=== PATIENT | male | born 1975 | race African-American/Black ===

== ENCOUNTER 2018-01-03 20:41 | Emergency (ER) | payer SELFPAY ==
[2018-01-03 21:25] LABS: Bilirubin Negative (Negative); Blood, Urine Negative (Negative); Clarity CLOUDY (Clear); Glucose, Urine (Dipstick) Negative (Negative); Leukocyte Small (Negative); Nitrite Negative (Negative); Protein, Urine (Dipstick) Negative (Neg-Trace); Specific Gravity, Urine 1.022 (1.002-1.036); pH, Urine 7.5 (5.0-9.0)
[2018-01-03 21:27] LABS: Bacteria/HPF None Seen HPF (None Seen); Hyaline Casts/LPF 0-3 HYALINE CAST LPF (0-3 Hyaline); Squamous Epithelial 0-3 HPF (0-3); WBC/HPF 21-50 HPF (0-3)
[2018-01-03] MEDS ORDERED: Lidocaine 1% PF 5 ML VIAL ONE (21:48)
[2018-01-03] MEDS ORDERED: cefTRIAXone\\ROCEPHIN 250 MG VIAL ONE (21:48)
[2018-01-03] MEDS ORDERED: Azithromycin 250 MG TAB ONE (21:49)
[2018-01-04 22:45] LABS: Chlamydia by PCR DETECTED (NotDetected); GC by PCR Not Detected (NotDetected)
== END 2018-01-03 22:05 | disposition home or self-care (01) ==
LOC: ERS 20:41
DX: N39.0 Urinary tract infection, site not specified (principal); I10 Essential (primary) hypertension; F17.210 Nicotine dependence, cigarettes, uncomplicated; E78.5 Hyperlipidemia, unspecified
CPT/HCPCS: 81003; 81015; 87491; 87591; 96372; J0696; J2001

== ENCOUNTER 2018-02-03 19:56 | Emergency (ER) | payer SELFPAY | END 2018-02-03 20:44 | disposition home or self-care (01) | LOC: ERS 19:56 | DX: J01.90 Acute sinusitis, unspecified (principal); B96.89 Other specified bacterial agents as the cause of diseases classified elsewhere; I10 Essential (primary) hypertension; E11.9 Type 2 diabetes mellitus without complications; E78.5 Hyperlipidemia, unspecified; F17.210 Nicotine dependence, cigarettes, uncomplicated | CPT/HCPCS: 99283 ==

== ENCOUNTER 2018-02-12 22:27 | Emergency (ER) | payer SELFPAY | END 2018-02-12 23:53 | disposition home or self-care (01) | LOC: ERS 22:27 | DX: K02.9 Dental caries, unspecified (principal); E11.9 Type 2 diabetes mellitus without complications; E78.5 Hyperlipidemia, unspecified; I10 Essential (primary) hypertension; F17.210 Nicotine dependence, cigarettes, uncomplicated; Z71.6 Tobacco abuse counseling | CPT/HCPCS: 99406 ==

== ENCOUNTER 2018-07-22 19:02 | Observation (INO) | payer SELFPAY ==
[2018-07-22] MEDS ORDERED: methylPREDNISolone Sod Succ/PF 125 MG/2 ML VIAL ONE (19:22)
[2018-07-22] MEDS ORDERED: Famotidine/PF 20 mg/2ml Vial ONE (19:22)
[2018-07-22] MEDS ORDERED: diphenhydrAMINE 50 MG/ML VIAL ONE (19:22)
[2018-07-22 19:40] LABS: #Basophils 0.1 thou/uL (0.0-0.2); #Eosinphils 0.1 thou/uL (0.0-0.7); #Lymphocytes 2.7 thou/uL (1.20-3.40); #Monocytes 0.5 thou/uL (0.11-0.59); %Eosinophils 1.8 % (0.0-10.0); %Lymphocytes 36.9 % (21.0-51.0); %Monocytes 6.2 % (0.0-10.0); %Neutrophils 54.2 % (42.0-75.0); Hemoglobin 16.4 g/dL (14.0-18.0); Mean Corpuscular HGB CONC 33.4 g/dL (32.0-36.0); Mean Corpuscular Hemoglobin 31.6 pg (27.0-31.0); Mean Corpuscular Volume 94.7 fL (78.0-98.0); Mean Platelet Volume 7.9 fL (7.4-10.4); Platelet Count 225 thou/uL (130-400); RBC Distribution Width 12.3 % (11.5-14.5); Red Blood Cell (RBC) Count 5.19 mill/uL (4.70-6.10); White Blood Cell (WBC) Count 7.3 thou/uL (4.8-10.8)
[2018-07-22 20:01] LABS: ALT (SGPT) 20 U/L (8-55); AST (SGOT) 21 U/L (5-34); Albumin 4.4 g/dL (3.5-5.0); Alkaline Phosphatase 59 U/L (40-150); Anion Gap 17 mmol/L (10-20); BUN (Urea Nitrogen) 9 mg/dL (8.9-20.6); Bilirubin, Total 0.5 mg/dL (0.2-1.2); Calc. Creatinine Clearance 0 mL/min (70-130); Calcium 9.4 mg/dL (7.8-10.44); Carbon Dioxide 21 mmol/L (22-29); Chloride 102 mmol/L (98-107); Estimated GFR-MDRD Greater than 90; Globulin 3.2 g/dL (2.4-3.5); Glucose 87 mg/dL (70-105); Potassium 3.8 mmol/L (3.5-5.1); Protein, Total 7.6 g/dL (6.0-8.3); Sodium 136 mmol/L (136-145)
[2018-07-22] MEDS ORDERED: Sodium Chloride 0.9% 1,000 ML IV SCH (23:05)
[2018-07-22] MEDS ORDERED: Ondansetron HCl/PF 4 MG/2 ML Vial IVP PRN (23:05)
[2018-07-22] MEDS ORDERED: Acetaminophen 325 MG TAB PO PRN (23:05)
[2018-07-22] MEDS ORDERED: Ondansetron ODT 4 MG TAB SL PRN (23:05)
[2018-07-22] MEDS ORDERED: Famotidine/PF 20 mg/2ml Vial SLOW IVP SCH (23:59)
[2018-07-23] MEDS: diphenhydrAMINE 50 MG/ML VIAL IVP SCH ×3 (00:53→11:31)
[2018-07-23 00:57] VITALS: BMI 29.6
[2018-07-23 04:37] LABS: #Lymphocytes 0.8 thou/uL (1.20-3.40); #Monocytes 0.1 thou/uL (0.11-0.59); #Neutrophils 5.1 thou/uL (1.40-6.50); %Basophils 0.3 % (0.0-1.0); %Eosinophils 0.2 % (0.0-10.0); %Lymphocytes 12.7 % (21.0-51.0); %Monocytes 1.1 % (0.0-10.0); %Neutrophils 85.7 % (42.0-75.0); Hemoglobin 16.3 g/dL (14.0-18.0); Mean Corpuscular HGB CONC 32.8 g/dL (32.0-36.0); Mean Corpuscular Hemoglobin 31.2 pg (27.0-31.0); Mean Corpuscular Volume 95.1 fL (78.0-98.0); Mean Platelet Volume 7.8 fL (7.4-10.4); Platelet Count 215 thou/uL (130-400); RBC Distribution Width 12.4 % (11.5-14.5); Red Blood Cell (RBC) Count 5.23 mill/uL (4.70-6.10); White Blood Cell (WBC) Count 5.9 thou/uL (4.8-10.8)
[2018-07-23 04:57] LABS: Anion Gap 10 mmol/L (10-20); BUN (Urea Nitrogen) 11 mg/dL (8.9-20.6); Calc. Creatinine Clearance 143 mL/min (70-130); Calcium 9.1 mg/dL (7.8-10.44); Carbon Dioxide 24 mmol/L (22-29); Chloride 106 mmol/L (98-107); Estimated GFR-MDRD Greater than 90; Glucose 133 mg/dL (70-105); Potassium 4.4 mmol/L (3.5-5.1); Sodium 136 mmol/L (136-145)
[2018-07-23] MEDS ORDERED: Milk Of Magnesia 30 ML UDCUP PO PRN (06:54)
[2018-07-23] MEDS ORDERED: Calcium Carbonate 500 MG ChewTAB PO PRN (06:54)
[2018-07-23] MEDS ORDERED: hydrALAZINE 20 MG/ML VIAL SLOW IVP PRN (06:54)
[2018-07-23] MEDS ORDERED: Senokot 8.6 MG TAB PO PRN (06:54)
[2018-07-23] MEDS ORDERED: Sodium Chloride 0.65% Nasal 44 ML BOT EA NARE PRN (06:54)
[2018-07-23] MEDS ORDERED: Loperamide HCl 2 MG CAP PO PRN (06:54)
[2018-07-23] MEDS ORDERED: Eucerin (Mineral Oil/Petrolatum,White) 30 gm Jar TOP PRN (06:54)
[2018-07-23] MEDS ORDERED: Diabetic Tussin 200 MG/10 ML UDCUP PO PRN (06:54)
[2018-07-23] MEDS ORDERED: Artificial Tears 18 DROP/0.9 ML EA EYE PRN (06:54)
[2018-07-23] MEDS ORDERED: Dextrose 50% Abboject 50 ML SYRINGE SLOW IVP PRN (06:56)
[2018-07-23] MEDS ORDERED: Dextrose 5% in Water 1,000 ML IV PRN (06:56)
[2018-07-23] MEDS ORDERED: HumaLOG 300 UNITS/3 ML VIAL SC PRN ×2 (06:56)
[2018-07-23] MEDS ORDERED: Acetaminophen 325 MG TAB PO PRN (06:57)
[2018-07-23] MEDS ORDERED: Ondansetron HCl/PF 4 MG/2 ML Vial IVP PRN (06:57)
[2018-07-23] MEDS ORDERED: Ondansetron ODT 4 MG TAB PO PRN (06:57)
[2018-07-23] MEDS ORDERED: Sodium Chloride 0.9% 1,000 ML IV SCH (07:00)
[2018-07-23] MEDS ORDERED: Famotidine/PF 20 mg/2ml Vial SLOW IVP SCH (09:00)
[2018-07-23] MEDS ORDERED: Enoxaparin Sodium 40 MG/0.4 ML SYRINGE SC SCH (09:00)
--- NOTE | 2018-07-23 11:27 | HP ---
PRIMARY CARE PHYSICIAN: [facility]. REASON FOR ADMISSION: Angioedema. HISTORY OF PRESENT ILLNESS: A 42-year-old -[place] male who has underlying history of hypert ension, diabetes type 2, and dyslipidemia, who came to emergency room last night with complaint of gr adual worsening of swelling of upper lip, which was started yesterday morning when he woke up and dur ing daytime, his swelling kept getting worse. His face was also getting swollen. He did not have an y respiratory distress, but he was worried about his tongue and lip swelling and that is why he came to emergency room for evaluation. The patient has history of hypertension and diabetes and he is calvin ing enalapril for last 10 years. He never had this type of allergic reaction in the past. He did no t have any wheezing or any stridor. He was evaluated in the emergency room last night and he was fou nd with angioedema. Subsequently, the patient was treated in the emergency room and admitted to [facility] floor. When I saw this patient at that time, patient still has upper lip swelling, though tongue swelling is reduced and improved. Patient denies any other complaints. REVIEW OF SYSTEMS: The following complete review of systems was negative, unless otherwise mentioned in the HPI or below: Constitutional: Weight loss or gain, ability to conduct usual activities. Skin: Rash, itching. Eyes: Double vision, pain. ENT/Mouth: Nose bleeding, neck stiffness, pain, tenderness. Cardiovascular: Palpitations, dyspnea on exertion, orthopnea. Respiratory: Shortness of breath, wheezing, cough, hemoptysis, fever or night sweats. Gastrointestinal: Poor appetite, abdominal pain, heartburn, nausea, vomiting, constipation, or diarr hea. Genitourinary: Urgency, frequency, dysuria, nocturia. Musculoskeletal: Pain, swelling. Neurologic/Psychiatric: Anxiety, depression. Allergy/Immunologic: Skin rash, bleeding tendency. Please see my HPI for pertinent positive and negative. All other review of systems reviewed and nega tive except as mentioned in the HPI. ALLERGIES: Now ENALAPRIL, MORPHINE and PENICILLIN. CURRENT HOME MEDICATIONS: The patient was on enalapril 20 mg p.o. b.i.d., metformin 1000 mg p.o. joanna ly, Zocor 20 mg p.o. at bedtime, triamterene with hydrochlorothiazide one tablet p.o. daily. PAST MEDICAL HISTORY: Diabetes type 2, hypertension, dyslipidemia. PAST SURGICAL HISTORY: Reviewed and negative. PAST PSYCHIATRIC HISTORY: Reviewed and negative. SOCIAL HISTORY: Patient drinks alcohol almost every day. He also abuses marijuana periodically and he also smokes about 1 pack per day. He denies any other illicit drug abuse. FAMILY HISTORY: No strong family history of premature coronary artery disease, stroke or cancer. EMERGENCY ROOM COURSE: Patient was given IV fluid, Pepcid 20 mg IV, Benadryl 50 mg IV, methylprednis olone 125 mg IV. PHYSICAL EXAMINATION: VITAL SIGNS: On arrival, blood pressure 127/87, pulse 100, respiratory rate 18, temperature 98.9, sa turation 98% on room air, weight 83.9 kilograms. GENERAL: Patient is currently alert, awake, no obvious acute distress. HEENT: Head: Normocephalic, atraumatic. Eyes: Pupils round, reactive to light. Extraocular muscl e intact. ENT: Oropharynx within normal limits. Tongue is normal without any swelling. Uvula and pharynx within normal limits without any edema. Upper lip is swollen, lower lip is mildly swollen. Otherwise, ear and neck examination is normal. NECK: Supple, no JVD, no thyromegaly, no carotid bruit. LUNGS: Clear to auscultation without any rhonchi or rales. No stridor. CARDIAC: S1, S2 regular without any murmur, no gallop, no rub. ABDOMEN: Soft, bowel sounds present, nontender, nondistended. No organomegaly, no mass, no suprapub ic tenderness. BACK: Unremarkable, no CVA tenderness. EXTREMITIES: Upper extremity, passive movement of all joints are normal. Lower extremity, no edema . Good distal pulsation. SKIN: No skin rash. HEMATOLOGICAL: No lymphadenopathy. PSYCHIATRIC: Normal affect. NEUROLOGIC: Nonfocal examination. SIGNIFICANT LABORATORY DATA: CBC: WBC 7.3, hemoglobin 16.4, platelet 225. BMP: Sodium 136, potass ium 3.8, chloride 102, carbon dioxide 21, BUN 9, creatinine 0.87, glucose 87, calcium 9.4. LFT: AST 21, ALT 20, alkaline phosphatase 59, albumin 4.4. ASSESSMENT AND PLAN: 1. Acute angioedema secondary to JULI inhibitor. The patient is treated in the emergency room. The patient still has angioedema of lips. At this point, we will continue with Benadryl 50 mg IV q.6 amilcar rs, Pepcid 20 mg IV b.i.d. and Solu-Medrol 40 mg IV q.6 hours. We will monitor clinical response and upon discharge, we will give him 5 days of prednisone, Pepcid and Benadryl therapy. 2. History of hypertension. Currently, the patient's blood pressure is running on lower side and th at is why we will hold on antihypertensive medication and we will continue with NS at 100 mL per hour . 3. Dyslipidemia. Continue Lipitor 10 mg p.o. at bedtime. 4. Hypertension. At this point, the patient's blood pressure running low and the patient is allergi c to ENALAPRIL now and that is why we will change his blood pressure medications. 5. Diabetes type 2. We will continue insulin as per sliding scale protocol. Diabetic diet will be given. Continue metformin. 6. Deep venous thrombosis prophylaxis. Lovenox 40 mg subcu daily. 7. Gastrointestinal prophylaxis, Pepcid 20 mg IV b.i.d. 8. CODE STATUS: The patient is FULL CODE. The patient does not have any surrogate decision maker. 9. Tobacco, alcohol, and marijuana abuse. Patient is given extensive counseling to avoid all illici t drug abuse. Healthy lifestyle measures discussed with the patient. Disposition plan within 24 hours. Plan of care discussed with the patient in detail.
[2018-07-23 15:33] VITALS: BP 132/78; TEMP 98.1
--- NOTE | 2018-07-23 19:35 | DIS ---
DATE OF ADMISSION: 07/22/2018 DATE OF DISCHARGE: 07/23/2018 DISCHARGE DISPOSITION: Home. PRIMARY DISCHARGE DIAGNOSIS: Angioedema due to JULI inhibitor. SECONDARY DISCHARGE DIAGNOSES: Diabetes, hypertension, dyslipidemia. PRIMARY PROCEDURE/OPERATION: None. RADIOLOGICAL INVESTIGATION: None. SIGNIFICANT LABORATORY: CBC, BMP remained normal. DISCHARGE MEDICATIONS: The patient will continue triamterene with hydrochlorothiazide 37.5/25 one ta blet p.o. daily, Zocor 20 mg p.o. at bedtime, metformin 1000 mg p.o. b.i.d. We prescribed prednisone 20 mg p.o. daily for 5 days, Benadryl 25 mg p.o. t.i.d. for 5 days, and Pepcid 20 mg p.o. b.i.d. for 5 days. CONTRAINDICATIONS: None. CODE STATUS: FULL CODE. INPATIENT CONSULTANTS: None. ALLERGIES: Now the patient has allergy with ENALAPRIL. DISCHARGE PLAN: Post hospital, the patient will follow up with primary care physician in 1 week. HOSPITAL COURSE: This patient was admitted for leg swelling, diagnosed with angioedema. He was taki ng enalapril and that is why we discontinued that medication and he was treated with Solu-Medrol, Pancho adryl, Pepcid, with significant improvement. Upon discharge, we prescribed oral dose of prednisone, Benadryl, and Pepcid. This patient is strongly advised to avoid enalapril and any kind of other JULI inhibitor medication. The patient is hemodynamically stable. His respiration is completely normal limits and today we are discharging this patient with above-mentioned medication. All new medication prescriptions sent to [facility].
[2018-07-23] MEDS ORDERED: Atorvastatin Calcium 10 MG TAB PO SCH (21:00)
[2018-07-24] MEDS ORDERED: metFORMIN 500 MG TAB PO SCH (08:00)
== END 2018-07-23 18:15 | disposition home or self-care (01) ==
LOC: ERS 19:02 → 2SW 21:35
PROVIDERS: ADMIT Hospitalist; ATTEND Hospitalist
DX: T78.3XXA Angioneurotic edema, initial encounter (principal); T46.4X5A Adverse effect of angiotensin-converting-enzyme inhibitors, initial encounter; I10 Essential (primary) hypertension; E11.9 Type 2 diabetes mellitus without complications; E78.5 Hyperlipidemia, unspecified; F12.10 Cannabis abuse, uncomplicated; F17.210 Nicotine dependence, cigarettes, uncomplicated; F10.10 Alcohol abuse, uncomplicated; Z79.84 Long term (current) use of oral hypoglycemic drugs; Z79.899 Other long term (current) drug therapy; Z88.0 Allergy status to penicillin; Z88.5 Allergy status to narcotic agent; Z88.8 Allergy status to other drugs, medicaments and biological substances
CPT/HCPCS: 36415; 36416; 80048; 80053; 85025; 96361; 96374; 96375; 96376; A4216; G0378; J1200; J1650; J2920; J2930; S0028

== ENCOUNTER 2018-11-21 17:32 | Emergency (ER) | payer SELFPAY ==
--- NOTE | 2018-11-21 19:20 | RAD ---
LEFT WRIST THREE VIEWS: INDICATIONS: Left wrist pain for two weeks without known injury. FINDINGS: Carpal alignment is maintained. No fracture or dislocation is seen. IMPRESSION: No acute osseous abnormality. POS: LEVY
== END 2018-11-21 20:15 | disposition home or self-care (01) ==
LOC: ERS 17:32
DX: M25.532 Pain in left wrist (principal); E11.9 Type 2 diabetes mellitus without complications; E78.5 Hyperlipidemia, unspecified; F17.210 Nicotine dependence, cigarettes, uncomplicated; Z71.6 Tobacco abuse counseling; Z79.899 Other long term (current) drug therapy; X50.1XXA Overexertion from prolonged static or awkward postures, initial encounter
CPT/HCPCS: 99406

== ENCOUNTER 2019-06-05 09:25 | Emergency (ER) | payer SELFPAY ==
[2019-06-05] MEDS ORDERED: Ibuprofen 800 MG TAB ONE (10:07)
[2019-06-05 10:28] LABS: #Basophils 0.1 thou/uL (0.0-0.2); #Eosinphils 0.2 thou/uL (0.0-0.7); #Lymphocytes 2.3 thou/uL (1.20-3.40); #Monocytes 0.4 thou/uL (0.11-0.59); #Neutrophils 2.4 thou/uL (1.40-6.50); %Basophils 0.9 % (0.0-1.0); %Eosinophils 3.8 % (0.0-10.0); %Lymphocytes 42.9 % (21.0-51.0); %Monocytes 8.1 % (0.0-10.0); %Neutrophils 44.3 % (42.0-75.0); Hemoglobin 16.6 g/dL (14.0-18.0); Mean Corpuscular HGB CONC 33.1 g/dL (32.0-36.0); Mean Corpuscular Hemoglobin 30.4 pg (27.0-31.0); Mean Corpuscular Volume 91.9 fL (78.0-98.0); Mean Platelet Volume 8.3 fL (7.4-10.4); Platelet Count 183 thou/uL (130-400); RBC Distribution Width 11.8 % (11.5-14.5); Red Blood Cell (RBC) Count 5.46 mill/uL (4.70-6.10); White Blood Cell (WBC) Count 5.4 thou/uL (4.8-10.8)
[2019-06-05 10:48] LABS: Bacteria/HPF None Seen HPF (None Seen); Bilirubin Negative (Negative); Blood, Urine Negative (Negative); Calcium Oxalate Crystals 1+ HPF (None Seen); Clarity Clear (Clear); Glucose, Urine (Dipstick) Normal (Negative); Leukocyte Negative Leu/uL (Negative); Mucous/LPF Rare LPF (<2+); Nitrite Negative (Negative); Protein, Urine (Dipstick) 30 mg/dL (Neg-Trace); RBC/HPF 0-3 HPF (0-3); Squamous Epithelial 0-3 HPF (0-3); Urobilinogen 3 mg/dL (Less than 2); WBC/HPF 0-3 HPF (0-3)
[2019-06-05 10:51] LABS: ALT (SGPT) 19 U/L (8-55); AST (SGOT) 17 U/L (5-34); Albumin 4.5 g/dL (3.5-5.0); Alkaline Phosphatase 81 U/L (40-150); Anion Gap 15 mmol/L (10-20); BUN (Urea Nitrogen) 13 mg/dL (8.9-20.6); Bilirubin, Total 0.6 mg/dL (0.2-1.2); Calc. Creatinine Clearance 0 mL/min (70-130); Calcium 9.7 mg/dL (7.8-10.44); Carbon Dioxide 22 mmol/L (22-29); Chloride 104 mmol/L (98-107); Estimated GFR-MDRD Greater than 90; Glucose 125 mg/dL (70-105); Potassium 3.3 mmol/L (3.5-5.1); Protein, Total 7.5 g/dL (6.0-8.3); Sodium 138 mmol/L (136-145)
--- NOTE | 2019-06-05 12:01 | ULT ---
ULTRASOUND SCROTUM TESTICLES DOPPLER DUPLEX: 06/05/2019 HISTORY: A 43-year-old male with left scrotal pain and swelling for one year. TECHNIQUE: Burch-scale evaluation of intrascrotal contents. Color flow Doppler and spectral waveform analysis of the testicles. FINDINGS: Right testicle: 2.5 x 4.7 x 2.7 cm. Left testicle: 2.7 x 4.5 x 2.7 cm. Right epididymal head: 1.4 x 0.8 cm. Left epididymal head: 1.2 x 1.2 cm. There is a 0.5 x 0.3 cm intermediate echogenicity nodule protruding exophytically from the junction b etween the left epididymal head and the left testicle. No hyperemia is associated with this. Testicular echogenicity: Bilaterally normal. Testicular blood flow: Bilaterally demonstrated. Intratesticular mass: None. Hydrocele: Large left. Varicocele: None identified. IMPRESSION: 1. Large left hydrocele. 2. Left appendix testis, 5 mm in size. If there is acute on chronic pain, this may or may not repre sent torsion of the left appendix testis. JULI Marie POS: CET
== END 2019-06-05 12:59 | disposition home or self-care (01) ==
LOC: ERS 09:25
DX: N43.3 Hydrocele, unspecified (principal); E11.9 Type 2 diabetes mellitus without complications; E78.5 Hyperlipidemia, unspecified; E78.00 Pure hypercholesterolemia, unspecified; I10 Essential (primary) hypertension; F17.210 Nicotine dependence, cigarettes, uncomplicated
CPT/HCPCS: 36415; 76870; 80053; 81003; 81015; 85025; 93976

== ENCOUNTER 2019-06-13 12:20 | Emergency (ER) | payer SELFPAY ==
[2019-06-13] MEDS ORDERED: Famotidine/PF 20 mg/2ml Vial ONE (12:39)
[2019-06-13] MEDS ORDERED: EPINEPHrine 1 MG/ML AMP ONE (12:39)
[2019-06-13] MEDS ORDERED: methylPREDNISolone Sod Succ/PF 125 MG/2 ML VIAL ONE (12:39)
[2019-06-13] MEDS ORDERED: diphenhydrAMINE 50 MG/ML VIAL ONE (12:39)
== END 2019-06-13 16:24 | disposition home or self-care (01) ==
LOC: ERS 12:20
DX: T78.2XXA Anaphylactic shock, unspecified, initial encounter (principal); F17.210 Nicotine dependence, cigarettes, uncomplicated; E11.9 Type 2 diabetes mellitus without complications; E78.00 Pure hypercholesterolemia, unspecified; E78.5 Hyperlipidemia, unspecified
CPT/HCPCS: 96372; 96374; 96375; J0171; J1200; J2930; S0028

== ENCOUNTER 2019-12-05 18:11 | Emergency (ER) | payer SELFPAY | END 2019-12-05 19:11 | disposition home or self-care (01) | LOC: ERS 18:11 | DX: N43.3 Hydrocele, unspecified (principal); E11.9 Type 2 diabetes mellitus without complications; E78.5 Hyperlipidemia, unspecified; E78.00 Pure hypercholesterolemia, unspecified; I10 Essential (primary) hypertension; F17.210 Nicotine dependence, cigarettes, uncomplicated; Z79.899 Other long term (current) drug therapy; Z79.84 Long term (current) use of oral hypoglycemic drugs | CPT/HCPCS: 99283 ==

== ENCOUNTER 2020-04-19 06:46 | Outpatient (CLI) | payer OTHER ==
[2020-04-19 17:19] LABS: Hemoglobin 16.7 g/dL (14.0-18.0); Mean Corpuscular HGB CONC 33.6 g/dL (32.0-36.0); Mean Corpuscular Hemoglobin 31.1 pg (27.0-31.0); Mean Corpuscular Volume 92.4 fL (78.0-98.0); Mean Platelet Volume 9.3 fL (7.4-10.4); Platelet Count 211 thou/uL (130-400); RBC Distribution Width 12.6 % (11.5-14.5); Red Blood Cell (RBC) Count 5.36 mill/uL (4.70-6.10); White Blood Cell (WBC) Count 6.3 thou/uL (4.8-10.8)
[2020-04-19 17:57] LABS: Anion Gap 14 mmol/L (10-20); BUN (Urea Nitrogen) 11 mg/dL (8.9-20.6); Calc. Creatinine Clearance 0 mL/min (70-130); Calcium 9.4 mg/dL (7.8-10.44); Carbon Dioxide 24 mmol/L (22-29); Chloride 102 mmol/L (98-107); Estimated GFR-MDRD Greater than 90; Glucose 169 mg/dL (70-105); Potassium 3.7 mmol/L (3.5-5.1); Sodium 136 mmol/L (136-145)
[2020-04-20 13:07] LABS: SARS-CoV-2 MS2 Positive; SARS-CoV-2 N Gene Negative; SARS-CoV-2 S Gene Negative; SARS-CoV-2 orf1ab Negative
== END 2020-04-19 06:47 | disposition home or self-care (01) ==
LOC: LABBT 06:46
PROVIDERS: ATTEND Urology
DX: Z01.812 Encounter for preprocedural laboratory examination (principal); Z11.59 Encounter for screening for other viral diseases; N43.3 Hydrocele, unspecified
CPT/HCPCS: 80048; 85027; 87635; U0003

== ENCOUNTER 2020-04-23 05:54 | Day surgery (SDC) | payer OTHER ==
[2020-04-18 10:29] VITALS: BMI 31.9
[2020-04-23] MEDS ORDERED: Famotidine/PF 20 mg/2ml Vial ONE (06:36)
[2020-04-23] MEDS ORDERED: Fentanyl 100 MCG/2 ML VIAL ONE (06:36)
[2020-04-23] MEDS ORDERED: Bupivacaine 0.25% HCL 30 ML VIAL ONE (08:10)
[2020-04-23] MEDS ORDERED: Clindamycin/D5W 600 mg/50 ml Premix Bag ONE (08:18)
[2020-04-23] MEDS ORDERED: Bacitracin Zinc Ointment 30 gm TUBE ONE (08:59)
[2020-04-23] MEDS ORDERED: PROPOFOL 200 MG/20 ML VIAL ONE (15:03)
[2020-04-23] MEDS ORDERED: Ondansetron PF 4 MG/2 ML Vial ONE (15:03)
[2020-04-23] MEDS ORDERED: Lidocaine 1% PF 5 ML VIAL ONE (15:03)
[2020-04-23] MEDS ORDERED: Metoclopramide HCl 10 MG/2 ML VIAL ONE (15:03)
[2020-04-23] MEDS ORDERED: Dexamethasone 20 MG/5 ML VIAL ONE (15:03)
[2020-04-23] MEDS ORDERED: Glycopyrrolate 0.2 MG/ML 5 ML SYRINGE ONE (15:03)
[2020-04-23] MEDS ORDERED: Ketorolac Tromethamine 30 MG/ML VIAL ONE (15:03)
--- NOTE | 2020-04-23 22:13 | OP ---
DATE OF PROCEDURE: 04/23/2020 PREOPERATIVE DIAGNOSIS: Left hydrocele. POSTOPERATIVE DIAGNOSIS: Left hydrocele. PROCEDURE PERFORMED: Left hydrocelectomy. ANESTHESIA: General. COMPLICATIONS: None. ESTIMATED BLOOD LOSS: 30 mL. DESCRIPTION OF PROCEDURE: After informed consent, the patient was taken to the operating room, transferred to the table under his own power. Anesthesia was established. A time-out was performed, showing correct patient, site, and procedure. Preoperative antibiotics were administered. He was prepped and draped in the supine position. I began by injecting 20 mL of local around the proposed incision site. I then made an incision over the left hemiscrotum using electrocautery. This was carried down to tunica vaginalis again with electrocautery. The tunica was then completely dissected and the hydrocele sac delivered into the operative field. This was carefully opened and drained and then the sac completely excised from around the testicle and removed from the spermatic cord. Care was taken to avoid injury to the epididymis or contents of the spermatic cord. The edges of resection were then cauterized and meticulous hemostasis was achieved along the site of the hydrocele and inside the scrotum. The scrotum was then irrigated and 10 mL of 0.25% Marcaine were injected into the spermatic cord for a cord block. A Mandy drain was then brought through the dependent portion of the scrotum and sutured in place with Vicryl suture. The testicle was then replaced and dartos was closed with Vicryl suture and the skin was closed in an interrupted fashion with chromic. The drain site and the incision were dressed with antibiotic ointment and fluff gauze. A scrotal support was then placed. The patient was awoken from anesthesia, transferred back to his hospital bed and taken to PACU in stable condition, where he was discharged home upon recovery and return to my office in 2 days for drain removal. Job ID: [id number]
== END 2020-04-23 10:40 | disposition home or self-care (01) ==
LOC: SDC 05:54
PROVIDERS: ATTEND Urology
PROC: 0VB70ZZ Excision of Left Tunica Vaginalis, Open Approach (ICD-10-PCS; principal; 2020-04-23)
DX: N43.3 Hydrocele, unspecified (principal); F17.200 Nicotine dependence, unspecified, uncomplicated; Z79.84 Long term (current) use of oral hypoglycemic drugs; Z79.899 Other long term (current) drug therapy; Z88.0 Allergy status to penicillin; Z88.5 Allergy status to narcotic agent; Z88.8 Allergy status to other drugs, medicaments and biological substances
CPT/HCPCS: J0690; J1100; J1885; J2001; J2405; J2704; J2765; J3010; J3490; S0020; S0028